=== PATIENT | male | born 1965 | race Asian ===

== ENCOUNTER 2024-02-11 22:25 | Emergency (ER) | payer OTHER ==
[~2024-02-11] VITALS: Ht 175.3 cm; Wt 104.3 kg
[2024-02-11 22:39] VITALS: PULSE 107; RESP 16; TEMP 98.8; O2SAT 96
[2024-02-11] MEDS: HYDROcodone/ACETAMIN 5-325 MG TAB (NORCO/ VICODIN) PO ONE (23:07)
[2024-02-11] MEDS ORDERED: HYDR-3917 PO (23:48)
[2024-02-11] MEDS ORDERED: ZAN4 PO (23:48)
== END 2024-02-12 00:13 | disposition home or self-care (01) ==
LOC: SED 22:25
DX: M54.16 Radiculopathy, lumbar region (principal); I10 Essential (primary) hypertension
CPT/HCPCS: 72131; 99284